=== PATIENT | female | born 1975 | race Caucasian/White ===

== ENCOUNTER 2021-10-24 11:31 | Emergency (ER) | payer OTHER, MEDICAID ==
[~2021-10-24] VITALS: Ht 154.9 cm; Wt 57.0 kg
[2021-10-24 11:33] VITALS: BP 172/107
[2021-10-24] MEDS ORDERED: AMOX-101 PO (13:31)
== END 2021-10-24 13:45 | disposition home or self-care (01) ==
LOC: ER 11:32
DX: J01.90 Acute sinusitis, unspecified (principal); R09.81 Nasal congestion; R50.9 Fever, unspecified; J02.9 Acute pharyngitis, unspecified; R05.9 Cough, unspecified; F17.200 Nicotine dependence, unspecified, uncomplicated
CPT/HCPCS: 99283

== ENCOUNTER → 2023-11-20 | Outpatient (CLI) | payer OTHER, MEDICAID | END | disposition home or self-care (01) | LOC: RAD 12:27 | PROVIDERS: ATTEND Nurse Practitioner | DX: M79.671 Pain in right foot (principal); M25.571 Pain in right ankle and joints of right foot | CPT/HCPCS: 73610; 73630 ==